=== PATIENT | female | born 1960 | race Caucasian/White ===

== ENCOUNTER → 2025-03-04 | Outpatient (CLI) | payer MEDICARE, SELFPAY ==
--- NOTE | 2025-03-04 08:48 | MRI_ITS ---
PROCEDURE: BRAIN W/WO CONTRAST 03/04/2025 REASON FOR EXAM: BILATERAL OCULAR PAIN TECHNIQUE: Procedure Code: MRIBRWW Modality: MR Procedure: BRAIN W/WO CONTRAST Multiplanar and multisequence images were obtained. CONTRAST: VOLUME: mL FINDINGS: A couple small foci of FLAIR hyperintensity are noted within the cerebral white matter, nonspecific. No corresponding enhancement. Otherwise the brain parenchyma appears unremarkable. The curry-white matter differentiation is appropriate. The ventricles are normal in size and configuration. No midline shift. The midline structures are intact, specifically the corpus callosum, septum pellucidum, pituitary gland, and cerebellar vermis. The cervicomedullary junction appears unremarkable. The paranasal sinuses and mastoid air cells are clear. Evidence of bilateral cataract surgery. Otherwise the orbits and their contents appear unremarkable. Diffusion-weighted images demonstrate no restricted diffusion. No abnormal enhancement pattern. MRI/Brain W/WO Contrast IMPRESSION: A couple small nonspecific, nonenhancing FLAIR hyperintense foci within the cer ebral white matter. These are of questionable clinical significance. However similar findings can be seen in patients experi encing migraine headaches. Otherwise unremarkable MRI of the head. Reading Location: [id number]
== END | disposition home or self-care (01) ==
PROVIDERS: PCP Registered Nurse; Referring Provider Ophthalmology; Visit Provider Ophthalmology
DX: H57.13 Ocular pain, bilateral (principal)
CPT/HCPCS: 70553; A9575